=== PATIENT | female | born 1980 | race Caucasian/White ===

== ENCOUNTER 2019-01-29 20:51 | Emergency (ER) | payer MEDICAID ==
[~2019-01-29] VITALS: Ht 160 cm; Wt 54.4 kg
[~2019-01-29 20:51] MED LIST: BLOO-200 XX; INSLANTI SC; INSU100I4 SC
[2019-01-29 22:11] VITALS: BP 141/78
[2019-01-29] MEDS ORDERED: BACLOFEN 10 MG TAB PO ONE (23:00)
[2019-01-29] MEDS ORDERED: HYDROcodone-ACET 10/325MG TAB PO ONE (23:00)
== END 2019-01-29 23:31 | disposition home or self-care (01) ==
LOC: ER 20:54
DX: R07.81 Pleurodynia (principal); M62.838 Other muscle spasm; E11.9 Type 2 diabetes mellitus without complications; F17.210 Nicotine dependence, cigarettes, uncomplicated; V49.59XA Passenger injured in collision with other motor vehicles in traffic accident, initial encounter; Y93.89 Activity, other specified; Y99.8 Other external cause status; Y92.410 Unspecified street and highway as the place of occurrence of the external cause
CPT/HCPCS: 71111

== ENCOUNTER 2021-09-02 07:27 | Inpatient (IN) | payer MEDICAID ==
[~2021-09-02] VITALS: Ht 160 cm; Wt 127.0 kg
[2021-09-02] MEDS ORDERED: SODIUM BICARBONATE 8.4 % INJ 50ML VIAL IV ONE ×2 (08:15→17:15)
[2021-09-02 08:42] LABS: Hematocrit 47.2 % (36.0-46.0); Hemoglobin 13.8 g/dL (12.2-16.2); Mean Corpuscular Hemoglobin 31.6 pg (28.0-32.0); Mean Corpuscular Hgb Conc. 29.1 g/dL (32.0-36.0); Mean Corpuscular Volume 108.5 fL (80.0-100.0); Red Blood Cells 4.35 10^6/uL (4.0-5.20); Red Cell Distribution Width 14.3 % (11.8-14.3); White Blood Cell 24.9 10^3/uL (4.4-10.8)
[2021-09-02] MEDS ORDERED: SODIUM CHLORIDE 0.9% 1,000 ML IVB ONE (08:45)
[2021-09-02 08:46] LABS: Basophils % (manual) 0 (0.0-2.0); Blast Cells 0; Eosinophils % (manual) 0 (0-7); Metamyelocytes % 0; Myelocytes % 0; Promyelocytes % 0; Reactive Lymphocytes 0
[2021-09-02 08:56] LABS: Albumin 3.3 g/dL (3.4-5.0)
[2021-09-02 09:05] LABS: BUN/Creatinine Ratio 22.4; Bilirubin, Total 0.3 mg/dL (0.2-1.0); Total Protein 7.3 g/dL (6.4-8.2)
[2021-09-02 09:07] LABS: Band Neutrophils % (manual) 12; Lymphocytes % (manual) 11 (10.0-50.0); Monocytes % (manual) 4 (0-12)
[2021-09-02 09:28] LABS: Potassium 6.7 mmol/L (3.5-5.1)
[2021-09-02 09:29] LABS: Magnesium 2.9 mg/dL (1.6-2.6)
[2021-09-02] MEDS ORDERED: CALCIUM GLUC 1,000mg/50ml-NS 50 ML IV ONE (09:30)
[2021-09-02] MEDS ORDERED: InsuLIN REG 1unit/0.01ml Soln (100units/ml) IV ONE (09:30)
[2021-09-02] MEDS: InsuLIN R (HUMAN) 100 UNITS in SODIUM CHL 0.9% 99 ML IV SCH ×2 (09:30→15:17)
[2021-09-02] MEDS ORDERED: DEXTROSE (50%) 50ML SYRG IV PRN ×3 (09:30→23:45)
[2021-09-02] MEDS ORDERED: INSULIN LANTUS (GLARGINE) 1 /0.01ml (100units/ml) SC ONE ×2 (09:30→23:45)
[2021-09-02 09:42] LABS: Beta HCG, Quantitative < 1 mlU/mL (1-3); Thyroid Stimulating Hormone 0.88 uIU/mL (0.358-3.74)
[2021-09-02 10:25] LABS: Urine Bacteria NONE SEEN /hpf (None Seen); Urine Blood TRACE /uL (Negative); Urine Hyaline Cast FEW /lpf (0 - 2); Urine Specific Gravity 1.018 (1.001-1.035); Urine WBC 2 /hpf (0 - 5)
[2021-09-02 10:26] LABS: Alcohol, Urine < 3.0 mg/dL (0-10); Amphetamine Screen, Urine NEGATIVE (NEGATIVE); Barbiturate Scree,Urine NEGATIVE (NEGATIVE); Benzodiazephine Screen, Urine NEGATIVE (NEGATIVE); Cannabinoid Screen, Urine NEGATIVE (NEGATIVE); Cocaine Screen, Urine NEGATIVE (NEGATIVE); Opiate Scree,Urine NEGATIVE (NEGATIVE); Phencyclidine Screen, Urine NEGATIVE (NEGATIVE)
[2021-09-02] MEDS: ACCU-CHEK COMFORT CURVE STRIP VI SCH ×7 (10:30→19:38)
[2021-09-02] MEDS ORDERED: ONDANSETRON HCL 4 MG/2 ML VIAL ONE (11:28)
[2021-09-02] MEDS ORDERED: ONDANSETRON HCL 4 MG/2 ML VIAL IV ONE (11:30)
[2021-09-02] MEDS ORDERED: NITROGLYCERIN 0.4 MG SL TAB SL PRN (16:00)
[2021-09-02] MEDS ORDERED: MORPHINE SULFATE INJECTION 2 MG/ML SYRG IV PRN (16:00)
[2021-09-02] MEDS ORDERED: DOCUSATE SOD 100 MG CAP PO PRN (16:00)
[2021-09-02] MEDS ORDERED: HYDROcodone-ACET 5/325MG TAB PO PRN (16:00)
[2021-09-02] MEDS: SODIUM CHLORIDE 0.9% 1,000 ML IV SCH ×2 (16:00→22:24)
[2021-09-02] MEDS ORDERED: METOCLOPRAMIDE HCL 5MG/ml INJ 2ml VIAL IV PRN (16:00)
[2021-09-02 18:29] LABS: BUN/Creatinine Ratio 7.6; Potassium 3.4 mmol/L (3.5-5.1)
[2021-09-02 18:34] LABS: Cholesterol 68 mg/dL (< 200); HDL Cholesterol 31 mg/dL (40-59); LDL Cholesterol 29 mg/dL (< 100); Triglycerides 59 mg/dL (< 150)
[2021-09-02] MEDS: FAMOTIDINE (10MG/ML) 2ML VL IV SCH (22:15)
[2021-09-02] MEDS: SODIUM CHLOR 0.9% PF (SALINE LOCK) 10ML VIAL/SYR IV SCH (22:15)
[2021-09-02 22:26] LABS: BUN/Creatinine Ratio 31.5; Calcium 7.8 mg/dL (8.5-10.1); Potassium 4.2 mmol/L (3.5-5.1)
[2021-09-02] MEDS ORDERED: InsuLIN R (HUMAN) 100 UNITS in SODIUM CHL 0.9% 99 ML IV SCH (23:45)
[2021-09-03] MEDS ORDERED: InsuLIN REG 1unit/0.01ml Soln (100units/ml) SC SCH
[2021-09-03] MEDS ORDERED: ACCU-CHEK COMFORT CURVE STRIP VI SCH
[2021-09-03 00:10] LABS: Albumin 2.9 g/dL (3.4-5.0); BUN/Creatinine Ratio 31.6; Calcium 7.7 mg/dL (8.5-10.1); Potassium 4.5 mmol/L (3.5-5.1)
[2021-09-03 00:12] LABS: Bilirubin, Total 0.3 mg/dL (0.2-1.0); Total Protein 6.1 g/dL (6.4-8.2)
[2021-09-03] MEDS: ACCU-CHEK COMFORT CURVE STRIP VI SCH ×11 (00:44→20:11)
[2021-09-03] MEDS ORDERED: POTASSIUM CHL 20 Meq TABLET PO ONE (01:00)
[2021-09-03 04:15] LABS: Albumin 2.9 g/dL (3.4-5.0); BUN/Creatinine Ratio 25.6; Calcium 7.7 mg/dL (8.5-10.1); Potassium 4.3 mmol/L (3.5-5.1)
[2021-09-03 04:18] LABS: Bilirubin, Total 0.3 mg/dL (0.2-1.0); Total Protein 6.1 g/dL (6.4-8.2)
[2021-09-03] MEDS: SODIUM CHLORIDE 0.9% 1,000 ML IV SCH ×2 (05:20→13:09)
[2021-09-03] MEDS: D5W/SOD CHLO 0.9% 1,000 ML IV SCH ×2 (05:46→16:11)
[2021-09-03] MEDS: SODIUM CHLOR 0.9% PF (SALINE LOCK) 10ML VIAL/SYR IV SCH ×3 (05:46→21:35)
[2021-09-03 07:21] LABS: Basophils # (auto) 0.1 10 ^3/uL (0-0.2); Basophils % (auto) 0.4 % (0.0-2.0); Eosinophils # (auto) 0 10 ^3/uL (0-0.8); Eosinophils % (auto) 0.1 % (0.0-7.0); Hematocrit 35.7 % (36.0-46.0); Hemoglobin 12.1 g/dL (12.2-16.2); Lymphocytes # (auto) 0.9 10 ^3/uL (0.4-5.4); Lymphocytes % (auto) 5.2 % (10.0-50.0); Mean Corpuscular Hemoglobin 31.2 pg (28.0-32.0); Mean Corpuscular Hgb Conc. 33.8 g/dL (32.0-36.0); Mean Corpuscular Volume 92.3 fL (80.0-100.0); Monocytes # (auto) 1.3 10 ^3/uL (0-1.3); Monocytes % (auto) 7.4 % (0.0-12.0); Neutrophils # (auto) 15.1 10 ^3/uL (1.6-8.6); Neutrophils % (auto) 86.9 % (37.0-80.0); Red Blood Cells 3.87 10^6/uL (4.0-5.20); Red Cell Distribution Width 12.9 % (11.8-14.3); White Blood Cell 17.3 10^3/uL (4.4-10.8)
[2021-09-03 07:39] LABS: Albumin 2.6 g/dL (3.4-5.0); Calcium 7.4 mg/dL (8.5-10.1); Potassium 4.1 mmol/L (3.5-5.1)
[2021-09-03 07:43] LABS: BUN/Creatinine Ratio 28.4; Bilirubin, Total 0.3 mg/dL (0.2-1.0); Total Protein 5.6 g/dL (6.4-8.2)
[2021-09-03] MEDS: FAMOTIDINE (10MG/ML) 2ML VL IV SCH (09:47)
[2021-09-03] MEDS ORDERED: ENOXAPARIN SOD 40 MG/0.4 ML SYRINGE SC SCH (10:00)
[2021-09-03] MEDS ORDERED: INSULIN LANTUS (GLARGINE) 1 /0.01ml (100units/ml) SC SCH ×3 (10:00)
[2021-09-03 11:28] LABS: Calcium 7.7 mg/dL (8.5-10.1); Potassium 3.6 mmol/L (3.5-5.1)
[2021-09-03 11:32] LABS: BUN/Creatinine Ratio 21.1; Bilirubin, Total 0.2 mg/dL (0.2-1.0); Total Protein 6.1 g/dL (6.4-8.2)
[2021-09-03] MEDS ORDERED: DEXTROSE (50%) 50ML SYRG IV PRN (12:30)
[2021-09-03] MEDS: InsuLIN REG 1unit/0.01ml Soln (100units/ml) SC SCH ×3 (13:00→20:00)
[2021-09-03] MEDS ORDERED: THROAT LOZENGES(CEPASTAT) MT ONE (13:45)
[2021-09-03] MEDS: THROAT LOZENGES(CEPASTAT) MT PRN ×2 (16:12→18:45)
[2021-09-03 16:36] LABS: Albumin 2.6 g/dL (3.4-5.0); Calcium 7.7 mg/dL (8.5-10.1); Potassium 3.4 mmol/L (3.5-5.1)
[2021-09-03 16:39] LABS: BUN/Creatinine Ratio 23.7; Bilirubin, Total 0.3 mg/dL (0.2-1.0); Total Protein 5.5 g/dL (6.4-8.2)
[2021-09-03] MEDS ORDERED: INSU1INJ19 SC (18:25)
[2021-09-03] MEDS ORDERED: GABA400C11 PO (18:25)
[2021-09-03] MEDS: ACETAMINOPHEN 325 MG TAB PO PRN (18:44)
[2021-09-03 19:25] VITALS: BP 106/59
[2021-09-03] MEDS: METOCLOPRAMIDE HCL 5MG/ml INJ 2ml VIAL IV PRN (19:35)
[2021-09-03] MEDS: INSULIN LANTUS (GLARGINE) 1 /0.01ml (100units/ml) SC SCH (21:34)
[2021-09-03] MEDS: ENOXAPARIN SOD 40 MG/0.4 ML SYRINGE SC SCH (21:36)
[2021-09-03 22:50] LABS: Albumin 2.4 g/dL (3.4-5.0); Calcium 7.5 mg/dL (8.5-10.1); Potassium 3.4 mmol/L (3.5-5.1)
[2021-09-03 22:53] LABS: Bilirubin, Total 0.3 mg/dL (0.2-1.0); Total Protein 5.2 g/dL (6.4-8.2)
[2021-09-04] MEDS: ACETAMINOPHEN 325 MG TAB PO PRN ×3 (00:11→17:49)
[2021-09-04] MEDS: THROAT LOZENGES(CEPASTAT) MT PRN ×7 (00:11→22:24)
[2021-09-04] MEDS: ACCU-CHEK COMFORT CURVE STRIP VI SCH ×6 (00:11→22:24)
[2021-09-04] MEDS: InsuLIN REG 1unit/0.01ml Soln (100units/ml) SC SCH ×6 (00:12→22:22)
[2021-09-04] MEDS: D5W/SOD CHLO 0.9% 1,000 ML IV SCH ×4 (04:30→15:50)
[2021-09-04] MEDS: METOCLOPRAMIDE HCL 5MG/ml INJ 2ml VIAL IV PRN ×2 (04:57→20:08)
[2021-09-04 04:58] LABS: Basophils # (auto) 0 10 ^3/uL (0-0.2); Basophils % (auto) 0.4 % (0.0-2.0); Eosinophils # (auto) 0 10 ^3/uL (0-0.8); Eosinophils % (auto) 0.3 % (0.0-7.0); Hemoglobin 11.8 g/dL (12.2-16.2); Lymphocytes # (auto) 1.9 10 ^3/uL (0.4-5.4); Lymphocytes % (auto) 19.6 % (10.0-50.0); Mean Corpuscular Hemoglobin 31.3 pg (28.0-32.0); Mean Corpuscular Hgb Conc. 34.7 g/dL (32.0-36.0); Mean Corpuscular Volume 90.2 fL (80.0-100.0); Monocytes # (auto) 0.6 10 ^3/uL (0-1.3); Neutrophils # (auto) 7.3 10 ^3/uL (1.6-8.6); Neutrophils % (auto) 73.7 % (37.0-80.0); Red Blood Cells 3.77 10^6/uL (4.0-5.20); Red Cell Distribution Width 12.8 % (11.8-14.3); White Blood Cell 9.9 10^3/uL (4.4-10.8)
[2021-09-04 05:00] VITALS: BP 113/72
[2021-09-04] MEDS: SODIUM CHLOR 0.9% PF (SALINE LOCK) 10ML VIAL/SYR IV SCH ×3 (05:01→22:21)
[2021-09-04 05:15] LABS: Albumin 2.4 g/dL (3.4-5.0); BUN/Creatinine Ratio 16.3; Calcium 7.6 mg/dL (8.5-10.1); Magnesium 2.3 mg/dL (1.6-2.6)
[2021-09-04 05:25] LABS: Bilirubin, Total 0.4 mg/dL (0.2-1.0); Total Protein 5.1 g/dL (6.4-8.2)
[2021-09-04 05:48] LABS: Potassium 2.8 mmol/L (3.5-5.1)
[2021-09-04] MEDS ORDERED: POTASSIUM CHL 20MEQ/50ML 50 ML IV SCH (06:15)
[2021-09-04] MEDS ORDERED: POTASSIUM CHLORIDE 40 MEQ, LIDOCAINE 1% (LOCAL ANESTH.) 4 ML in SODIUM CHL 0.9% 250 ML IV ONE ×2 (06:30→11:00)
[2021-09-04 09:00] VITALS: BP 125/65
[2021-09-04] MEDS: FAMOTIDINE (10MG/ML) 2ML VL IV SCH (09:24)
[2021-09-04] MEDS: ENOXAPARIN SOD 40 MG/0.4 ML SYRINGE SC SCH (09:25)
[2021-09-04] MEDS: INSULIN LANTUS (GLARGINE) 1 /0.01ml (100units/ml) SC SCH ×2 (10:00→22:23)
[2021-09-04 13:00] VITALS: BP 125/82
[2021-09-04] MEDS ORDERED: LIDOCAINE VISCOUS 2% 15ML UD MT PRN (14:45)
[2021-09-04] MEDS ORDERED: DEXTROSE (50%) 50ML SYRG IV PRN (14:45)
[2021-09-04 15:43] LABS: Calcium 7.5 mg/dL (8.5-10.1); Potassium 3.1 mmol/L (3.5-5.1)
[2021-09-04 15:47] LABS: Albumin 2.4 g/dL (3.4-5.0); BUN/Creatinine Ratio 9.3
[2021-09-04 15:49] LABS: Bilirubin, Total 0.5 mg/dL (0.2-1.0); Total Protein 5.3 g/dL (6.4-8.2)
[2021-09-04] MEDS ORDERED: MAGNESIUM SULFATE 1GM/100ML 100 ML IV ONE (21:00)
[2021-09-04 22:00] VITALS: BP 142/78
[2021-09-04] MEDS: GABAPENTIN 300 MG CAP PO SCH (22:21)
[2021-09-05] MEDS: THROAT LOZENGES(CEPASTAT) MT PRN ×2 (02:33→14:26)
[2021-09-05] MEDS: ACETAMINOPHEN 325 MG TAB PO PRN ×4 (02:34→20:45)
[2021-09-05] MEDS: D5W/SOD CHLO 0.9% 1,000 ML IV SCH (04:05)
[2021-09-05 05:00] VITALS: BP 136/79
[2021-09-05 06:25] LABS: Albumin 2.6 g/dL (3.4-5.0); Calcium 7.5 mg/dL (8.5-10.1)
[2021-09-05 06:29] LABS: BUN/Creatinine Ratio 12.5; Bilirubin, Total 0.6 mg/dL (0.2-1.0); Total Protein 5.6 g/dL (6.4-8.2)
[2021-09-05 06:33] LABS: Potassium 2.9 mmol/L (3.5-5.1)
[2021-09-05] MEDS: SODIUM CHLOR 0.9% PF (SALINE LOCK) 10ML VIAL/SYR IV SCH ×2 (06:39→14:00)
[2021-09-05] MEDS: GABAPENTIN 300 MG CAP PO SCH ×3 (06:39→20:33)
[2021-09-05] MEDS: ACCU-CHEK COMFORT CURVE STRIP VI SCH ×4 (06:40→20:47)
[2021-09-05] MEDS: InsuLIN REG 1unit/0.01ml Soln (100units/ml) SC SCH ×4 (06:41→20:47)
[2021-09-05] MEDS ORDERED: POTASSIUM CHLORIDE 40 MEQ, LIDOCAINE 1% (LOCAL ANESTH.) 4 ML in SODIUM CHL 0.9% 250 ML IV ONE ×3 (07:00→15:00)
[2021-09-05 08:42] VITALS: BP 121/75
[2021-09-05] MEDS: FAMOTIDINE (10MG/ML) 2ML VL IV SCH (08:53)
[2021-09-05] MEDS: INSULIN LANTUS (GLARGINE) 1 /0.01ml (100units/ml) SC SCH ×2 (10:13→20:47)
[2021-09-05 13:00] VITALS: BP 124/86
[2021-09-05] MEDS ORDERED: INSREGI SC (16:07)
[2021-09-05] MEDS ORDERED: INSLANTI SC (16:07)
[2021-09-05] MEDS ORDERED: POTASSIUM CHL 20 Meq TABLET PO ONE (16:15)
[2021-09-05] MEDS ORDERED: MAGNESIUM OXIDE 400 MG TAB PO ONE (16:15)
[2021-09-05 18:08] VITALS: BP 121/88
[2021-09-05 19:14] LABS: Albumin 2.8 g/dL (3.4-5.0); BUN/Creatinine Ratio 11.3; Calcium 8.1 mg/dL (8.5-10.1); Potassium 4.1 mmol/L (3.5-5.1)
[2021-09-05 19:17] LABS: Bilirubin, Total 0.6 mg/dL (0.2-1.0); Total Protein 6.2 g/dL (6.4-8.2)
[2021-09-05] MEDS: METOCLOPRAMIDE HCL 5MG/ml INJ 2ml VIAL IV PRN (20:34)
== END 2021-09-05 20:50 | disposition home or self-care (01) | DRG 420 ==
LOC: EDBD 07:27 → ER 07:27 → TELE 15:58 → TELE-WESTW 09-03 18:00
PROVIDERS: ADMIT Hospitalist; ATTEND Hospitalist
DX: E11.10 Type 2 diabetes mellitus with ketoacidosis without coma (principal); G92.8 Other toxic encephalopathy; E44.1 Mild protein-calorie malnutrition; N17.9 Acute kidney failure, unspecified; E86.0 Dehydration; D75.89 Other specified diseases of blood and blood-forming organs; E87.5 Hyperkalemia; E11.21 Type 2 diabetes mellitus with diabetic nephropathy; Z20.822 Contact with and (suspected) exposure to COVID-19; F17.210 Nicotine dependence, cigarettes, uncomplicated; Z68.42 Body mass index [BMI] 45.0-49.9, adult; Z82.49 Family history of ischemic heart disease and other diseases of the circulatory system; Z83.3 Family history of diabetes mellitus; Z79.4 Long term (current) use of insulin
CPT/HCPCS: 36415; 36600; 71045; 80048; 80053; 80061; 80307; 81001; 82805; 82962; 83036; 83690; 83735; 84443; 84484; 84702; 85007; 85025; 85027; 87426; 93005; 96365; 96372; 96375; 99291; G0378; J1815; J2001; J2405; J3490; J7042

== ENCOUNTER 2025-03-04 17:29 | Inpatient (IN) | payer MEDICAID ==
[~2025-03-04] VITALS: Ht 160 cm; Wt 60.8 kg
[~2025-03-04 17:29] MED LIST changes: +ALBUAER3 IN; +AUG875T PO; +GABA-1251 PO; +GUAI100S6 PO; +INSREGI SC; -INSU100I4 SC
--- NOTE | 2025-03-04 17:39 | ED.PDOC ---
History of present illness HPI Comments This is a 44 year old female RIAA presenting to the ED with chief complaint of generalized weakness and hyperglycemia. Patient reports that she has been experiencing generalized weakness with associated malaise and excessive thirst since yesterday. Patient relays that she ran out of her long acting insulin y esterday. EMS states patient had been heavily drinking Truly's today with her BG reading 456 on route to the ED. EMS notes patient was given 500ccs of IV NS. Patient denies any SOB, dizziness, N/V, chest pain, abdominal pain, fever, or chills. Patient's BG noted to be 444 in the ED. Chief Complaint: Hyperglycemia Time Seen by MD: 17:35 Primary Care Provider: UTO History of present illness: Nurses Notes, Babbitter Notes, Medications, Allergies Allergies: Coded Allergies: NO KNOWN ALLERGIES (Unverified , 09/04/14) Home Meds Active Scripts Albuterol Sulfate (VENTOLIN MDI) 90 Mcg Ih, 90 MCG IN Q4HP PRN for 30 Days, #1 INH Prov:RAMIRO DAWSON NP 03/24/23 Amoxicillin & Pot Clavulanate (AUGMENTIN TABLET) 875 Mg Tb, 7 MG PO BID for 7 Days, #14 TAB Prov:RAMIRO DAWSON NP 03/24/23 Insulin Regular (Human) (Novolin R) 100 Unit/Ml Inj, 0 SC AC for 60 Days, #30 INJ 1 Refill Resume patients previous dose Prov:RAMIRO DAWSON NP 03/24/23 Insulin Glargine (Lantus) 100 Unit/Ml Inj, 12 UNITS SC BID for 60 Days, #30 DOSE Prov:RAMIRO DAWSON NP 03/24/23 Blood Glucose Monitoring Suppl (Blood Glucose Monitoring W/Device) 1 Kit Kit, KIT XX, #1 Prov:FABIANA MASON MD 12/24/18 Reported Medications Guaifenesin-Codeine (Robitussin/Codeine) 10 Ml So, 5 ML PO Q6HR for 7 Days, #120 ML 03/24/23 Guaifenesin-Codeine (Robitussin/Codeine) 10 Ml So, 5 ML PO Q6HR for 7 Days, #120 ML 03/24/23 Gabapentin (Gabapentin) 400 Mg Cap, 1 CAP PO TID 09/03/21 Information Source: Patient, Emergency Med Personnel Mode of Arrival: EMS Timing: Days Duration: Since onset Prehospital treatment: IVF [place]: None History of: Diabetes, Insulin use Past Medical History PAST MEDICAL HISTORY: DM Surgical History: Denies all surgeries LABOR RELATIONS ANALYST History: No Pertinent LABOR RELATIONS ANALYST History Family History Family History: Reviewed,noncontributory to illness, Family hx of DM Social History Smoker: Cigarettes, Less Than 1 Pack/Day Alcohol: Occasionally Drugs: Denies Drug Use Lives In: Home Constitutional: reports: malaise, weakness; denies: chills, diaphoresis, fatigue, fever, sweats, others EENTM: denies: blurred vision, double vision, ear bleeding, ear discharge, ear drainage, ear pain, ear ringing, eye pain, eye redness, hearing loss, mouth pain, mouth swelling, nasal discharge, nose bleeding, nose congestion, nose pain, photophobia, tearing, throat pain, throat swelling, voice changes, others Respiratory: denies: cough, hemoptysis, orthopnea, SOB at rest, shortness of breath, SOB with excertion, stridor, wheezing, others Cardiovascular: denies: chest pain, dizzy spells, diaphoresis, Dyspnea on exertion, edema, irregular heart beat, left arm pain, lightheadedness, palpitations, PND, syncope, others Gastrointestinal: denies: abdomen distended, abdominal pain, blood streaked bowels, constipated, diarrhea, dysphagia, difficulty swallowing, hematemesis, melena, nausea, poor appetite, poor fluid intake, rectal bleeding, rectal pain, vomiting, others Genitourinary: denies: abnormal vagina bleeding, burning, dyspareunia, dysuria, flank pain, frequency, hematuria, incontinence, pain, , vagina discharge, urgency, others Neurological: denies: dizziness, fainting, headache, left sided numbness, left sided weakness, numbness, paresthesia, pre-existing deficit, right sided numbness, right sided weakness, seizure, speech problems, tingling, tremors, weakness, others Musculoskeletal: denies: back pain, gout, joint pain, joint swelling, muscle pain, muscle stiffness, neck pain, others Integumetry: denies: bruises, change in color, change in hair/nails, dryness, laceration, lesions, lumps, rash, wounds, others Allergic/Immunocompromised: denies: Difficulty Healing, Frequent Infections, Hives, Itching, others Hematologic/Lymphatic: denies: anemia, blood clots, easy bleeding, easy bruising, swollen glands, others Endocrine: reports: excessive thirst; denies: excessive hunger, excessive sweating, excessive urination, flushing, intolerance to cold, intolerance to heat, unexplained weight gain, unexplained weight loss, others Psychiatric: denies: anxiety, bipolar disorder, depression, hopeless, panic disorder, schizophrenia, sleepless, suicidal, others All Other Systems: Reviewed and Negative Physical Exam General Appearance: Moderate Distress HEENT: Normal ENT Inspection, Pharynx Normal, TMs Normal Neck: Full Range of Motion, Non-Tender, Normal, Normal Inspection Respiratory: Chest Non-Tender, Lungs Clear, No Accessory Muscle Use, No Respiratory Distress, Normal Breath Sounds Cardiovascular: No Edema, No JVD, No Murmur, No Gallop, Tachycardia Breast Exam: Deferred Gastrointestinal: No Organomegaly, Non Tender, No Pulsatile Mass, Normal Bowel Sounds, Soft Genitalia: Deferred Pelvic: Deferred Rectal: Deferred Extremities: No calf tenderness, Normal capillary refill, Normal inspection, Normal range of motion, Non-tender, No pedal edema Musculoskeletal : Apperance: Normal Neurologic: Alert, inclusion specialist II-XII nml as Tested, Motor Weakness, Normal Affect, Normal Mood, No Sensory Deficits Cerebellar Function: Normal Reflexes: Normal Skin: Dry, Normal Color, Warm Lymphatic: No Adenopathy Was a procedure done? Was a procedure done?: No Differential Diagnosis (DM) Differential Diagnosis: Dehydration, DKA, Gastritis, Gastroenteritis, UTI X-Ray, Labs, Meds, VS Vital Signs Date Time Temp Pulse Resp B/P (MAP) Pulse Ox O2 Delivery O2 Flow Rate FiO2 03/04/25 18:15 Room Air* 0 21 03/04/25 18:10 91 03/04/25 17:35 99.0 94 20 15 (50) 99 99.0 Lab Test 03/04/25 18:17 03/04/25 17:50 03/04/25 17:44 Range/Units White Blood Count 25.4 H 4.4-10.8 10^3/uL Red Blood Count 5.12 4.0-5.20 10^6/uL Hemoglobin 16.0 12.2-16.2 g/dL Hematocrit 51.5 H 36.0-46.0 % Mean Corpuscular Volume 100.6 H 80.0-100.0 fL Mean Corpuscular Hemoglobin 31.2 28.0-32.0 pg Mean Corpuscular Hemoglobin Concent 31.1 L 32.0-36.0 g/dL Red Cell Distribution Width 14.3 11.8-14.3 % Platelet Count 405 140-450 10^3/uL Mean Platelet Volume 8.8 6.9-10.8 fL Neutrophils (%) (Auto) 37.0-80.0 % Lymphocytes (%) (Auto) 10.0-50.0 % Monocytes (%) (Auto) 0.0-12.0 % Basophils (%) (Auto) 0.0-2.0 % Neutrophils # (Auto) 1.6-8.6 10 ^3/uL Lymphocytes # (Auto) 0.4-5.4 10 ^3/uL Monocytes # (Auto) 0-1.3 10 ^3/uL Differential Total Cells Counted 100.0 100 Neutrophils % (Manual) 91 H 37.0-80.0 Band Neutrophils % (Manual) 2 Lymphocytes % (Manual) 4 L 10.0-50.0 Monocytes % (Manual) 3 0-12 Eosinophils % (Manual) 0 0-7 Basophils % (Manual) 0 0.0-2.0 Metamyelocytes % (manual) 0 Myelocytes % (Manual) 0 Promyelocytes % (Manual) 0 Blast Cells % (Manual) 0 Reactive Lymphocytes 0 Platelet Estimate Adequate Anisocytosis (manual) Slight Sodium Level 131 L 136-145 mmol/L Potassium Level 6.2 *H 3.5-5.1 mmol/L Chloride Level 101 98-107 mmol/L Carbon Dioxide Level < 10 *L 20-31 mmol/L Anion Gap 20.16329 H 5-15 Blood Urea Nitrogen 24 H 9-23 mg/dL Creatinine 1.32 H 0.550-1.02 mg/dL Glomerular Filtration Rate Calc 52 >90 mL/min BUN/Creatinine Ratio 18.2 10.0-20.0 Serum Glucose 475 *H 74-106 mg/dL Calcium Level 10.0 8.7-10.4 mg/dL Plasma/Serum Blood Alcohol < 3.0 <10 mg/dL POC Glucose 484 *H 70-106 mg/dl Urine Color Light-yellow Yellow Urine Clarity Clear Clear Urine pH 5.0 5.0-9.0 Urine Specific [place] 1.020 1.001-1.035 Urine Protein Trace H Negative Urine Ketones 4+ H Negative Urine Blood 2+ H Negative /uL Urine Nitrite Negative Negative Urine Bilirubin Negative Negative Urine Urobilinogen Normal Negative mg/dL Urine Leukocyte Esterase 2+ Negative /uL Urine RBC 17 0 - 4 /hpf Urine Microscopic WBC 12 H 0-5 /HPF Urine Squamous Epithelial Cells Few <5 /hpf Urine Bacteria None seen None Seen /hpf Urine Glucose 4+ H Normal mg/dL Urine Test Negative Negative Urine Opiates Screen Neg NEGATIVE Urine Fentanyl Screen Neg NEGATIVE Urine Barbiturates Screen Neg NEGATIVE Urine Phencyclidine Screen Neg NEGATIVE Urine Amphetamines Screen Pos NEGATIVE Urine Benzodiazepines Screen Neg NEGATIVE Urine Cocaine Screen Neg NEGATIVE Urine Cannabinoids Screen Neg NEGATIVE Current Medications Medications (Trade) Dose Ordered Sig/Laura Route Start Time Stop Time Status Last Admin Sodium Chloride 1,000 ml @ 1,000 mls/hr Q1H ONCE IV 03/04/25 17:45 03/04/25 18:44 DC 03/04/25 17:45 Ondansetron HCl (Zofran) 4 mg ONCE ONCE IV 03/04/25 17:45 03/04/25 17:46 DC 03/04/25 19:16 Insulin Human Regular (InsuLIN R) 5 units ONCE ONCE IV 03/04/25 18:45 03/04/25 18:46 DC 03/04/25 19:03 Chest XR indicates: No acute cardiopulmonary process. The patient was given a 1 L bolus of normal saline The patient was given insulin 5 units IV push The patient was given Zofran 4 mg IV push for the nausea The urine tox is positive for methamphetamines The urine test is positive for UTI The patient was given Rocephin 1 g IV piggyback for the UTI CBC shows an elevated white blood cell count of 25.4 The chemistry panel shows a BUN of 24 and a creatinine of one 0.32 The CO2 is less than 10 The anion gap is greater than 20 At this time, the patient is being admitted Images Reviewed?: Images reviewed and evaluated by me Time of 1ST Reevaluation: 19:33 Reevaluation 1ST: Unchanged Patient Education/Counseling: Diagnosis, Treatment, Prognosis Family Education/Counseling: No Family Present SEPSIS Sepsis Screen Physician Orders Chest Portable (03/04/25 17:33) Heplock Iv (03/04/25 17:33) Engineering Associate (03/04/25 17:33) Blood Pressure (03/04/25 17:33) Pulse Oximetry (03/04/25 17:33) Potassium (03/04/25 19:28) Abg W/ Co-Ox (03/04/25 19:31) Insulin Algorithm # 1 (03/04/25 19:45) Glucose Blood (Accu-Chek Comfort Curve T (03/04/25 21:00) D/C All Diabetic Medications (03/04/25 19:31) Insulin Drip Protocol (03/04/25 19:31) Dextrose 50% Syringe (03/04/25 19:45) Long Acting Insulin Lantus (03/04/25 19:45) Long Acting Insulin Lantus (03/05/25 10:00) Vital Signs Date Time Temp Pulse Resp B/P (MAP) Pulse Ox O2 Delivery O2 Flow Rate FiO2 03/04/25 18:15 Room Air* 0 21 03/04/25 18:10 91 03/04/25 17:35 99.0 94 20 15/67 (50) 99 99.0 Laboratory Tests Test 03/04/25 18:17 White Blood Count 25.4 10^3/uL (4.4-10.8) H Medications Medications Dose Ordered Sig/Laura Route Start Time Stop Time Status Last Admin Dose Admin Insulin Human Regular 5 units ONCE ONCE IV 03/04/25 18:45 03/04/25 18:46 DC 03/04/25 19:03 Ondansetron HCl 4 mg ONCE ONCE IV 03/04/25 17:45 03/04/25 17:46 DC 03/04/25 19:16 Sodium Chloride 1,000 ml @ 1,000 mls/hr Q1H ONCE IV 03/04/25 17:45 03/04/25 18:44 DC 03/04/25 17:45 Departure 1 Departure Time of Disposition: 19:33 Impression: Primary Impression: Diabetic ketoacidosis Qualified Codes: E10.10 - Type 1 diabetes mellitus with ketoacidosis without coma Additional Impression: Hyperkalemia Disposition: ADMITTED INPATIENT Admit to: ICU Condition: Fair Critical Care Note Critical Care Time?: Yes (45 min-critical care time only) Stability Stability form required: Yes Unstable for transfer: Telemetry monitoring (Telemetry monitoring required), ED Physician Assesment (Clinical assesment) Heart Score Heart Score: Heart Score Response (Comments) Value History N/A 0 EKG N/A 0 Age N/A 0 Risk Factors N/A 0 Troponin N/A 0 Total 0 I personally scribed for DIANE JONAS MD ([email or web address]) on 03/04/25 at 17:39. Electronically submitted by Sb Crespo ([email or web address]). I personally scribed for DIANE JONAS MD ([email or web address]) on 03/04/25 at 17:40. Electronically submitted by Sb Crespo ([email or web address]). I personally scribed for DIANE JONAS MD ([email or web address]) on 03/04/25 at 18:38. Electronically submitted by Sb Crespo ([email or web address]). DIANE JONAS MD Mar 04, 2025 17:39
[2025-03-04] MEDS: SODIUM CHLORIDE 0.9% 1,000 ML IV ONE (17:45)
[2025-03-04] MEDS ORDERED: InsuLIN REG 1unit/0.01ml Soln (100units/ml) IV ONE (17:45)
--- NOTE | 2025-03-04 18:09 | DVH ---
EXAM: XR Chest, 1 View CLINICAL INDICATION: weakness TECHNIQUE: Frontal view of the chest. COMPARISON: No relevant prior studies available. FINDINGS: LUNGS AND PLEURAL SPACES: Unremarkable. No consolidation. No pneumothorax. HEART: Unremarkable. No cardiomegaly. MEDIASTINUM: Unremarkable. Normal mediastinal contour. BONES/JOINTS: Unremarkable. No acute fracture. OTHER FINDINGS: Comparison XY CHEST PORTABLE on DOS: 03/24/23, XY CHEST PORTABLE on DOS: 03/23/23, XY CHEST PORTABLE on DOS: 03/22/23, XY CHEST XRAY 1 VIEW on DOS: 03/20/23, CHEST PORTABLE on DOS: 1. IMPRESSION: No acute cardiopulmonary process. HS:Y
[2025-03-04 18:17] LABS: Urine Bacteria None Seen /hpf (None Seen)
[2025-03-04 18:29] LABS: Hematocrit 51.5 % (36.0-46.0); Mean Corpuscular Hemoglobin 31.2 pg (28.0-32.0); Mean Corpuscular Hgb Conc. 31.1 g/dL (32.0-36.0); Mean Corpuscular Volume 100.6 fL (80.0-100.0); Platelet Count (auto) 405 10^3/uL (140-450); Red Blood Cells 5.12 10^6/uL (4.0-5.20); Red Cell Distribution Width 14.3 % (11.8-14.3); White Blood Cell 25.4 10^3/uL (4.4-10.8)
[2025-03-04 18:31] LABS: Basophils % (manual) 0 (0.0-2.0); Blast Cells 0; Eosinophils % (manual) 0 (0-7); Metamyelocytes % 0; Myelocytes % 0; Promyelocytes % 0; Reactive Lymphocytes 0
[2025-03-04 18:33] LABS: Urine Blood 2+ /uL (Negative); Urine Clarity Clear (Clear); Urine Color Light-Yellow (Yellow); Urine Protein, UAD TRACE (Negative); Urine Squamous Epithelial Cell FEW /hpf (<5); Urine Urobilinogen Normal (Negative); Urine WBC 12 /HPF (0-5)
[2025-03-04 18:42] LABS: Amphetamine Screen, Urine Pos (NEGATIVE); Barbiturate Scree,Urine Neg (NEGATIVE); Benzodiazephine Screen, Urine Neg (NEGATIVE); Cannabinoid Screen, Urine Neg (NEGATIVE); Cocaine Screen, Urine Neg (NEGATIVE); Opiate Scree,Urine Neg (NEGATIVE); Phencyclidine Screen, Urine Neg (NEGATIVE)
[2025-03-04 18:45] LABS: Chloride 101 mmol/L (98-107)
[2025-03-04 18:46] LABS: Anion Gap 20.00001 (5-15)
[2025-03-04 18:51] LABS: BUN/Creatinine Ratio 18.2 (10.0-20.0)
[2025-03-04 18:58] LABS: Blood Urea Nitrogen 24 mg/dL (9-23); Sodium 131 mmol/L (136-145)
[2025-03-04 18:59] LABS: Blood Alcohol < 3.0 mg/dL (<10); Carbon Dioxide < 10 mmol/L (20-31); Glucose 475 mg/dL (74-106); Potassium 6.2 mmol/L (3.5-5.1)
[2025-03-04] MEDS: InsuLIN REG 1unit/0.01ml Soln (100units/ml) ONE (18:59)
[2025-03-04] MEDS: InsuLIN REG 1unit/0.01ml Soln (100units/ml) IV ONE (19:03)
[2025-03-04] MEDS: ONDANSETRON HCL 4 MG/2 ML VIAL IV ONE (19:16)
[2025-03-04 19:22] LABS: Band Neutrophils % (manual) 2; Lymphocytes % (manual) 4 (10.0-50.0); Monocytes % (manual) 3 (0-12); Platelet Estimate Adequate
[2025-03-04 19:23] LABS: Anisocytosis Slight
[2025-03-04 19:45] VITALS: RESP 17; O2SAT 100
[2025-03-04] MEDS ORDERED: DEXTROSE (50%) 50ML SYRG IV PRN (19:45)
[2025-03-04 19:56] LABS: Base Excess -27.6 mmol/L (-2.0-3.0)
[2025-03-04] MEDS: SODIUM BICARB 8.4% 50Meq/50ml SYR Vial IV ONE ×2 (20:00→20:01)
[2025-03-04] MEDS: levoFLOXacin 500MG 100 ML IV ONE ×2 (20:00→20:01)
[2025-03-04] MEDS: INSULIN LANTUS (GLARGINE) 1 /0.01ml (100units/ml) SC ONE ×2 (20:02→20:05)
[2025-03-04] MEDS: SODIUM BICARB 50mEq/50ml Vial 50 ML in SOD CHL 0.45% 1,000 ML IV ONE (20:25)
[2025-03-04] MEDS: ACCU-CHEK COMFORT CURVE STRIP VI SCH (21:06)
[2025-03-04] MEDS: INSULIN DRIP 100 UNIT/100ML 100 ML IV ONE (21:07)
[2025-03-04] MEDS: INSULIN DRIP 100 UNIT/100ML 100 ML IV SCH (21:10)
[2025-03-04] MEDS: SODIUM CHLORIDE 0.9% 500 ML IV ONE (21:15)
[2025-03-04] MEDS: PANTOPRAZOLE 40 MG/10 ML VIAL INJ IV ONE ×2 (22:07→22:08)
[2025-03-04 23:00] VITALS: BP 141/81; PULSE 91; RESP 12; O2SAT 100
[2025-03-04 23:33] VITALS: BP 141/81; PULSE 91; RESP 12; TEMP 98.9; O2SAT 100; O2SAT 99
[2025-03-05] VITALS (16 sets, daily range): BP systolic 110–156; BP diastolic 63–84; PULSE 88–99; RESP 11–19; TEMP 98.4–98.9; O2SAT 95–100
[2025-03-05 00:20] LABS: Sodium 136 mmol/L (136-145)
[2025-03-05 00:21] LABS: Anion Gap 18.00001 (5-15); Calcium 8.1 mg/dL (8.7-10.4); Chloride 108 mmol/L (98-107); Potassium 5.4 mmol/L (3.5-5.1)
[2025-03-05 00:23] LABS: Carbon Dioxide < 10 mmol/L (20-31)
[2025-03-05 00:26] LABS: BUN/Creatinine Ratio 20.4 (10.0-20.0); Blood Urea Nitrogen 21 mg/dL (9-23)
[2025-03-05 00:37] LABS: Glucose 253 mg/dL (74-106)
[2025-03-05] MEDS: SODIUM CHLORIDE 0.9% 250 ML IV ONE (01:00)
[2025-03-05 01:05] LABS: Base Excess -17.4 mmol/L (-2.0-3.0)
[2025-03-05] MEDS: D5W/SOD CHL 0.45% 1,000 ML IV SCH (01:05)
--- NOTE | 2025-03-05 03:08 | DVHHPRES ---
History of Present Illness Resident Creating Document: MARCUS MCGOVERN RESIDENT History of Present Illness Patient is a 44-year-old female with a past medical history of diabetes mellitus presented to the ED with a chief complaint of nausea and generalized weakness. Patient reported that since the last 2 days she has been feeling weak associated with the excessive thirst since yesterday. Patient ran out of her long-acting insulin 2- 3 days ago. Patient denied any episode of emesis, abdominal pain. Patient denied cough, expectoration, fever, chills. Patient did report of having increased thirst and increased frequency of urination. Patient's urine was positive for amphetamines Past medical history: Diabetes mellitus 1 versus type 2 Past surgical history: None Social history: Patient lives with the landlord, smoked less than 1 pack of cigarettes per day, occasional alcohol use denies any other drug use Review of Systems Review of Systems Patient seen and examined at the bedside Reports feeling weak but better than when she came in Has mild headache Denies cough, chest pain, shortness of breath, abdominal pain Allergies: Coded Allergies: NO KNOWN ALLERGIES (Unverified , 09/04/14) Medications Current Medications Medications Dose Ordered Sig/Laura Route Start Time Stop Time Status Last Admin Dose Admin Insulin Human (Reg)/Sodium Chloride 100 ml @ 0.5 mls/hr Q24H IV 03/04/25 19:45 03/04/25 21:10 4 MLS/HR Diagnostic Test (Pha) 1 strip Q90MIN 03/04/25 21:00 03/05/25 01:41 1 STRIP Dextrose 50 ml PRN PRN IV 03/04/25 19:45 Insulin Glargine 15 units DAILY SC 03/05/25 10:00 Pantoprazole Sodium 40 mg DAILY IV 03/05/25 10:00 Dextrose/Sodium Chloride 1,000 ml @ 100 mls/hr Q10H IV 03/05/25 00:45 Exam Vital Signs Vital Signs Date Time Temp Pulse Resp B/P (MAP) Pulse Ox O2 Delivery O2 Flow Rate FiO2 03/05/25 01:00 91 11 129/71 (90) 95 03/05/25 00:00 98.9 98.9 03/04/25 23:33 Room Air* 0 21 Exam Gen - no pallor, no icterus, no cyanosis, no clubbing, no LAD, no edema . Skin - Patients skin is warm and dry. HEENT - normocephalic, atraumatic, dry mucous membranes. Neck - full ROM, no LAD, no JVD Pulmonary - B/L equal breath sounds, no crackles, no wheezing, no stridor. cardiovascular - regular S1,S2 heard, no added sounds, no murmurs heard. peripheral pulses normal radial 2+, pedal 2+. capillary refill normal <2 secs. GI - soft, nontender abdomen. no hepatospleenomegaly. Bowel sounds normoactive Neurological - Patient is A/O X 3 . Bilateral upper extremity strength 5/5, bilateral lower extremity strength 5/5, no facial droop, normal speech, no tremor, no sensory deficiets. Labs/Xrays Labs Test 03/05/25 01:38 03/05/25 00:59 03/04/25 23:55 03/04/25 18:17 Range/Units POC Glucose 146 H 70-106 mg/dl Blood Gas Specimen Type Arterial Blood Gas Sample Site Left brachial Blood Gas Patient Temperature 37.0 Arterial Blood Date Drawn [id number] Arterial Blood pH 7.193 *L 7.350-7.450 Arterial Blood Partial Pressure CO2 23.4 L 32.0-45.0 mmHg Arterial Blood Partial Pressure O2 95.8 83.0-108.0 mmHg Arterial Blood HCO3 8.8 L 21.0-28.0 mmol/L Arterial Blood Oxygen Saturation 97.3 94.0-98.0 % Arterial Blood Base Excess -17.4 L -2.0-3.0 mmol/L Arterial Blood Oxyhemoglobin 95.6 94.0-98.0 % Arterial Blood Carboxyhemoglobin 1.3 0.5-1.5 % Arterial Blood Methemoglobin 0.4 0.0-1.5 % Dwayne Test N/a Blood Gas Total Hemoglobin 14.80 12.0-16.0 g/dL Blood Gas Modality Room air FiO2 % 21.0 Blood Gas Critical Value Read Back Yes Blood Gas Notified Whom marcus Mcgovern md Blood Gas Notified Time [id number] Blood Gas Notified By Sodium Level 136 # 136-145 mmol/L Potassium Level 5.4 H 3.5-5.1 mmol/L Chloride Level 108 H 98-107 mmol/L Carbon Dioxide Level < 10 *L 20-31 mmol/L Anion Gap 18.48649 H 5-15 Blood Urea Nitrogen 21 9-23 mg/dL Creatinine 1.03 H 0.550-1.02 mg/dL Glomerular Filtration Rate Calc 70 >90 mL/min BUN/Creatinine Ratio 20.4 H 10.0-20.0 Serum Glucose 253 H 74-106 mg/dL Calcium Level 8.1 L 8.7-10.4 mg/dL White Blood Count 25.4 H 4.4-10.8 10^3/uL Red Blood Count 5.12 4.0-5.20 10^6/uL Hemoglobin 16.0 12.2-16.2 g/dL Hematocrit 51.5 H 36.0-46.0 % Mean Corpuscular Volume 100.6 H 80.0-100.0 fL Mean Corpuscular Hemoglobin 31.2 28.0-32.0 pg Mean Corpuscular Hemoglobin Concent 31.1 L 32.0-36.0 g/dL Red Cell Distribution Width 14.3 11.8-14.3 % Platelet Count 405 140-450 10^3/uL Mean Platelet Volume 8.8 6.9-10.8 fL Neutrophils (%) (Auto) 37.0-80.0 % Lymphocytes (%) (Auto) 10.0-50.0 % Monocytes (%) (Auto) 0.0-12.0 % Basophils (%) (Auto) 0.0-2.0 % Neutrophils # (Auto) 1.6-8.6 10 ^3/uL Lymphocytes # (Auto) 0.4-5.4 10 ^3/uL Monocytes # (Auto) 0-1.3 10 ^3/uL Differential Total Cells Counted 100.0 100 Neutrophils % (Manual) 91 H 37.0-80.0 Band Neutrophils % (Manual) 2 Lymphocytes % (Manual) 4 L 10.0-50.0 Monocytes % (Manual) 3 0-12 Eosinophils % (Manual) 0 0-7 Basophils % (Manual) 0 0.0-2.0 Metamyelocytes % (manual) 0 Myelocytes % (Manual) 0 Promyelocytes % (Manual) 0 Blast Cells % (Manual) 0 Reactive Lymphocytes 0 Platelet Estimate Adequate Anisocytosis (manual) Slight Plasma/Serum Blood Alcohol < 3.0 <10 mg/dL Test 03/04/25 17:44 Range/Units Urine Color Light-yellow Yellow Urine Clarity Clear Clear Urine pH 5.0 5.0-9.0 Urine Specific [place] 1.020 1.001-1.035 Urine Protein Trace H Negative Urine Ketones 4+ H Negative Urine Blood 2+ H Negative /uL Urine Nitrite Negative Negative Urine Bilirubin Negative Negative Urine Urobilinogen Normal Negative mg/dL Urine Leukocyte Esterase 2+ Negative /uL Urine RBC 17 0 - 4 /hpf Urine Microscopic WBC 12 H 0-5 /HPF Urine Squamous Epithelial Cells Few <5 /hpf Urine Bacteria None seen None Seen /hpf Urine Glucose 4+ H Normal mg/dL Urine Test Negative Negative Urine Opiates Screen Neg NEGATIVE Urine Fentanyl Screen Neg NEGATIVE Urine Barbiturates Screen Neg NEGATIVE Urine Phencyclidine Screen Neg NEGATIVE Urine Amphetamines Screen Pos NEGATIVE Urine Benzodiazepines Screen Neg NEGATIVE Urine Cocaine Screen Neg NEGATIVE Urine Cannabinoids Screen Neg NEGATIVE Assessment/Plan Assessment/Plan Anion gap Metabolic acidosis with respiratory compensation Diabetic ketoacidosis Uncontrolled T2DM - ABG showed metabolic acidosis with respiratory compensation - initial ABG pH less than 7, 50 mEq of sodium bicarb - insulin drip - IV fluids - BMP q.4 hours - keep potassium more than 4.5 UTI likely acute cystitis Sepsis likely due to above - IV fluids - IV antibiotics REX on CKD likely d/t dehydration,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 Peripheral neuropathy from uncontrolled diabetes - IV fluids - monitor kidney function and electrolytes PUD prophylaxis: Protonix DVT prophylaxis: MARYSOL score 0 Goals of care discussed with the patient and the primary RN for over 19 minutes. Full code Critical care time spent: 57 minutes Plan discussed with Dr. Van Plan discussed with: Other (RN Ambar) My Orders Orders - MARCUS MCGOVERN RESIDENT Procedure Category Date Status Time Admit ADMIT 03/04/25 Transmitted 20:53 Oxygen By Nasal RT 03/04/25 Transmitted Cannula 20:53 Stat Ekg For Chest ELIUD 03/04/25 In Process Pain 20:53 Notify Of Changes ELIUD 03/04/25 In Process From Base 20:53 Spray Mixer For ELIUD 03/04/25 In Process 24 Hours 20:53 Emergency Dysrhythmia ELIUD 03/04/25 In Process Protocol 20:53 Rhythm Strips Once ELIUD 03/04/25 In Process Every Shift 20:53 Electrocardigram EKG 03/04/25 Logged 21:47 Pantoprazole PHA 03/05/25 In Process (Protonix) 10:00 Abg W/ Co-Ox RT 03/05/25 Logged 00:42 D5w/Sod Chl 0.45% PHA 03/05/25 In Process (D5w 1/2ns) 00:45 Comprehensive LAB 03/05/25 Transmitted Metabolic Panel 03:00 Ceftriaxone Ivpb PHA 03/05/25 Transmitted Rocephin 09:00 Basic Metabolic Panel LAB 03/05/25 Transmitted 07:00 Basic Metabolic Panel LAB 03/05/25 Transmitted 11:00 Date of Service: Mar 04, 2025 Billing Provider: TANA VAN MD Common Visit Codes: 93010-[id number] INP/OBS CARE (HIGH) Secondary Visit Codes: [id number] CARE PLAN 30 MINUTES MARCUS MCGOVERN RESIDENT Mar 05, 2025 03:08
[2025-03-05 04:31] LABS: Basophils # (auto) 0 10 ^3/uL (0-0.2); Basophils % (auto) 0.2 % (0.0-2.0); Eosinophils # (auto) 0 10 ^3/uL (0-0.8); Eosinophils % (auto) 0.1 % (0.0-7.0); Hematocrit 42.3 % (36.0-46.0); Lymphocytes # (auto) 2.3 10 ^3/uL (0.4-5.4); Lymphocytes % (auto) 11.9 % (10.0-50.0); Mean Corpuscular Hemoglobin 31.7 pg (28.0-32.0); Mean Corpuscular Hgb Conc. 33.2 g/dL (32.0-36.0); Mean Corpuscular Volume 95.7 fL (80.0-100.0); Monocytes # (auto) 1.1 10 ^3/uL (0-1.3); Neutrophils # (auto) 15.5 10 ^3/uL (1.6-8.6); Neutrophils % (auto) 81.8 % (37.0-80.0); Platelet Count (auto) 347 10^3/uL (140-450); Red Blood Cells 4.41 10^6/uL (4.0-5.20); Red Cell Distribution Width 13.5 % (11.8-14.3); White Blood Cell 18.9 10^3/uL (4.4-10.8)
[2025-03-05 04:56] LABS: Alanine Aminotransferase 20 U/L (7-40); Albumin 3.9 g/dL (3.2-4.8); Anion Gap 14 (5-15); Aspartate Aminotransferase 17 U/L (<34); BUN/Creatinine Ratio 15.8 (10.0-20.0); Blood Urea Nitrogen 16 mg/dL (9-23); Potassium 4.7 mmol/L (3.5-5.1); Sodium 138 mmol/L (136-145); Total Protein 6.5 g/dL (5.7-8.2)
[2025-03-05 05:00] LABS: Alkaline Phosphatase 133 U/L (46-116); Bilirubin, Total 0.3 mg/dL (0.2-1.0); Calcium 7.8 mg/dL (8.7-10.4); Carbon Dioxide 13 mmol/L (20-31); Chloride 111 mmol/L (98-107); Glucose 118 mg/dL (74-106)
--- NOTE | 2025-03-05 07:00 | ECG ---
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
[2025-03-05] MEDS: POTASSIUM CHLORIDE 20 MEQ, LIDOCAINE 1% (LOCAL ANESTH.) 2 ML in SODIUM CHL 0.9% 100 ML IV ONE (10:00)
[2025-03-05] MEDS ORDERED: DEXTROSE (50%) 50ML SYRG IV PRN (10:00)
[2025-03-05] MEDS ORDERED: INSULIN LANTUS (GLARGINE) 1 /0.01ml (100units/ml) SC SCH (10:00)
[2025-03-05] MEDS: SODIUM CHLORIDE 0.9% 500 ML IV ONE (10:45)
[2025-03-05] MEDS: cefTRIAXone 1GM/50ML D5W 50 ML IV SCH (11:06)
[2025-03-05] MEDS: PANTOPRAZOLE 40 MG/10 ML VIAL INJ IV SCH (11:07)
[2025-03-05] MEDS: INSULIN LANTUS (GLARGINE) 1 /0.01ml (100units/ml) SC SCH (11:08)
[2025-03-05] MEDS: INSULIN LISPRO (HUMAN) 100 UNITS/ML ML SC SCH (11:30)
[2025-03-05] MEDS: ACCU-CHEK COMFORT CURVE STRIP VI SCH (11:30)
[2025-03-05] MEDS: InsuLIN REG 1unit/0.01ml Soln (100units/ml) SC SCH ×2 (11:30→23:16)
[2025-03-05 12:20] LABS: Potassium 3.7 mmol/L (3.5-5.1); Sodium 138 mmol/L (136-145)
[2025-03-05 12:21] LABS: Anion Gap 12 (5-15); Calcium 8.8 mg/dL (8.7-10.4)
[2025-03-05 12:23] LABS: Carbon Dioxide 18 mmol/L (20-31); Chloride 108 mmol/L (98-107)
[2025-03-05 12:26] LABS: BUN/Creatinine Ratio 15.2 (10.0-20.0); Blood Urea Nitrogen 15 mg/dL (9-23)
[2025-03-05 12:28] LABS: Glucose 115 mg/dL (74-106)
[2025-03-05 12:33] LABS: Magnesium 1.9 mg/dL (1.6-2.6)
[2025-03-05 12:34] LABS: Phosphorus 2.1 mg/dL (2.4-5.1)
--- NOTE | 2025-03-05 15:46 | DVHPNRES ---
Progress Note Date Seen: Mar 05, 2025 Resident Creating Document: TONY BRANCH ABDOUL Has the PT tested + for MRSA If YES, has PT been informed?: No Medical Necessity Reason Pt with a Central, PICC or Fol: No Subjective Review of Systems Patient is a 44-year-old female with a past medical history of diabetes mellitus presented to the ED with a chief complaint of nausea and generalized weakness. Patient reported that since the last 2 days she has been feeling weak associated with the excessive thirst since yesterday. Patient ran out of her long-acting insulin 2- 3 days ago. Patient denied any episode of emesis, abdominal pain. Patient denied cough, expectoration, fever, chills. Patient did report of having increased thirst and increased frequency of urination. Patient's urine was positive for amphetamines Past medical history: Diabetes mellitus 1 versus type 2 Past surgical history: None Social history: Patient lives with the [facility], smoked less than 1 pack of cigarettes per day, occasional alcohol use denies any other drug use Patient seen and examined at the bedside. The patient is feeling better since admission, but still complained of frequency. Patient reports: No new complaints, Feels better Changes from previous H/P or p: Changes Objective vital signs Vital Sign Date Time Temp Pulse Resp B/P (MAP) Pulse Ox O2 Delivery O2 Flow Rate FiO2 03/05/25 12:00 90 03/05/25 12:00 12 124/71 (88) 99 03/05/25 08:00 Room Air* 0 21 03/05/25 08:00 98.4 98.4 Total Intake and Output 03/04/25 03/04/25 03/05/25 15:00 23:00 07:00 Intake Total 1101.5 ml 950.0 ml Balance 1101.5 ml 950.0 ml medications Current Medications Medications Dose Ordered Sig/Laura Route Start Time Stop Time Status Last Admin Dose Admin Pantoprazole Sodium 40 mg DAILY IV 03/05/25 10:00 03/05/25 11:07 40 MG Ceftriaxone Sodium 50 ml @ 100 mls/hr DAILY@09 IV 03/05/25 09:00 03/05/25 11:06 100 MLS/HR Insulin Glargine 15 units BID SC 03/05/25 10:00 03/05/25 11:08 15 UNITS Insulin Human Lispro 10 units AC SC 03/05/25 11:30 03/05/25 11:30 10 UNITS Diagnostic Test (Pha) 1 strip ACHS 03/05/25 11:30 Insulin Human Regular HS SC 03/05/25 22:00 Insulin Human Regular AC SC 03/05/25 11:30 Dextrose 50 ml UD PRN IV 03/05/25 10:00 Examination General Appearance: Alert, Oriented X3, Cooperative, No acute distress HEENT: Atraumatic, PERRLA, EOMI, Mucous membrane moist/pink Respiratory: Clear to auscultation, Normal air movement Cardiovascular: Regular rate, Normal S1, Normal S2, No murmurs, no chest wall tenderness Abdominal: Normal bowel sounds, Soft, No tenderness, No hepatospenomegaly, No masses Extremities: No clubbing, No cyanosis, No edema, Normal pulses, No tenderness/swelling Skin: No rashes, No breakdown, No significant lesion Neuro: Normal gait, Normal speech, Strength at 5/5 X4 ext, Normal tone, Sensation intact, Cranial nerves 3-12 NL, Reflexes 2+ Psych/Mental Status: Mental status NL, Mood NL laboratory and microbiology Laboratory Tests 03/05/25 12:00 03/05/25 03:31 Test 03/05/25 12:00 Range/Units Serum Glucose 115 H 74-106 mg/dL Labs and/or images reviewed: Labs reviewed by me, Image(s) reviewed by me Problem List/Assessment/Plan Problem List/Assessment/Plan Uncontrolled diabetes mellitus type 1 with DKA Diabetic ketoacidosis Anion gap Metabolic acidosis with respiratory compensation Acute complicated UTI Sepsis likely due to above REX on CKD likely d/t dehydration,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 Peripheral neuropathy from uncontrolled diabetes Hyperkalemia * ABGs shows uncompensated metabolic acidosis * Chest x-ray shows hyperinflated lung Plan/recommendation * Discontinue insulin drip and D5W half-normal saline * Insulin Lantus 15 units b.i.d., lispro 10 units t.i.d., and regular according to moderate sliding scale * IV normal saline * Replete potassium * Empiric antibiotic Rocephin DIET: Diabetic diet DVT PROPHYLAXIS: Lovenox GI PROPHYLAXIS:: Protonix CODE STATUS: Goal of care discussed for more than 18 minutes, full code DISPOSITION: Telemetry Patient's status and plan discussed with the patient. Case discussed with Dr. Connell. Plan discussed with: Patient, Other (RN) My Orders My Orders Orders - TONY BRANCH RESDIENT Procedure Category Date Status Time Insulin Lantus PHA 03/05/25 In Process (Glargine) (Lantus) 10:00 *Rn [employer] REFER 03/05/25 Transmitted Referral 09:52 Consistent DIET 03/05/25 Transmitted Carb(Ccho)Diabetes Lunch Insulin Lispro PHA 03/05/25 In Process (Human) (Humalog) 11:30 Glucose Blood PHA 03/05/25 In Process (Accu-Chek Comfort 11:30 Insulin R (Human) PHA 03/05/25 In Process (Insulin R) 22:00 Insulin R (Human) PHA 03/05/25 In Process (Insulin R) 11:30 Dextrose 50% Syringe PHA 03/05/25 In Process 10:00 PTPTT LAB 03/06/25 Verified 04:00 Communication Order ORDERS 03/05/25 Transmitted 10:09 Date of Service: Mar 05, 2025 Billing Provider: FAY CONNELL MD Common Visit Codes: [id number] INP/OBS CARE(HIGH) TONY BRANCH RESDIENT Mar 05, 2025 15:46 FAY CONNELL MD Mar 08, 2025 22:16
[2025-03-05] MEDS: POTASSIUM EFFERVESENT TAB 25 MEQ PO ONE (16:24)
[2025-03-05] MEDS: MAGNESIUM SULFATE 1GM/100ML 100 ML IV ONE (16:25)
[2025-03-06] VITALS (7 sets, daily range): BP systolic 110–146; BP diastolic 71–83; PULSE 50–102; RESP 16–19; TEMP 97.5–98; O2SAT 97–100
[2025-03-06 07:40] LABS: Basophils # (auto) 0 10 ^3/uL (0-0.2); Basophils % (auto) 0.3 % (0.0-2.0); Eosinophils # (auto) 0.2 10 ^3/uL (0-0.8); Eosinophils % (auto) 2.2 % (0.0-7.0); Hematocrit 40.3 % (36.0-46.0); Hemoglobin 13.9 g/dL (12.2-16.2); Lymphocytes # (auto) 2.2 10 ^3/uL (0.4-5.4); Lymphocytes % (auto) 30.7 % (10.0-50.0); Mean Corpuscular Hgb Conc. 34.5 g/dL (32.0-36.0); Mean Corpuscular Volume 92.9 fL (80.0-100.0); Monocytes # (auto) 0.4 10 ^3/uL (0-1.3); Neutrophils # (auto) 4.5 10 ^3/uL (1.6-8.6); Neutrophils % (auto) 60.8 % (37.0-80.0); Nucleated Red Blood Cells % 0.1 %; Platelet Count (auto) 294 10^3/uL (140-450); Red Blood Cells 4.34 10^6/uL (4.0-5.20); Red Cell Distribution Width 13.6 % (11.8-14.3); White Blood Cell 7.3 10^3/uL (4.4-10.8)
[2025-03-06 08:00] LABS: Anion Gap 9 (5-15); Carbon Dioxide 23 mmol/L (20-31); Sodium 140 mmol/L (136-145)
[2025-03-06 08:01] LABS: Calcium 9.1 mg/dL (8.7-10.4)
[2025-03-06 08:06] LABS: BUN/Creatinine Ratio 16.7 (10.0-20.0); Blood Urea Nitrogen 12 mg/dL (9-23)
[2025-03-06 08:15] LABS: Chloride 108 mmol/L (98-107); Glucose 112 mg/dL (74-106); Potassium 3.2 mmol/L (3.5-5.1)
[2025-03-06 08:18] LABS: INR 0.92 (0.9-1.15); Partial Thromboplastin Time 24.5 SEC (24.5-34.5); Prothrombin Time 9.8 sec (9.3-11.8)
--- NOTE | 2025-03-06 13:31 | DVHPNRES ---
Progress Note Date Seen: Mar 06, 2025 Resident Creating Document: CASEY MCDONALD RESIDENT Has the PT tested + for MRSA If YES, has PT been informed?: No Medical Necessity Reason Pt with a Central, PICC or Fol: No Subjective Review of Systems Patient is a 44-year-old female with a past medical history of diabetes mellitus presented to the ED with a chief complaint of nausea and generalized weakness. Patient reported that since the last 2 days she has been feeling weak associated with the excessive thirst since yesterday. Patient ran out of her long-acting insulin 2- 3 days ago. Patient denied any episode of emesis, abdominal pain. Patient denied cough, expectoration, fever, chills. Patient did report of having increased thirst and increased frequency of urination. Patient's urine was positive for amphetamines Past medical history: Diabetes mellitus 1 versus type 2 Past surgical history: None Social history: Patient lives with the [facility], smoked less than 1 pack of cigarettes per day, occasional alcohol use denies any other drug use 03/06/25 At admission, patient was on insulin drip due to DKA, later was transitioned to insulin SC, today she had hypoglycemia at 7 am with normal glucose at 5 am, please put the lispro insulin between 10 min before each meal, we will continue monitor the sugars Objective vital signs Vital Sign Date Time Temp Pulse Resp B/P (MAP) Pulse Ox O2 Delivery O2 Flow Rate FiO2 03/06/25 13:24 97.6 85 16 130/74 (92) 100 97.6 03/06/25 08:00 Room Air* 0 21 Total Intake and Output 03/05/25 03/05/25 03/06/25 15:00 23:00 07:00 Intake Total 354.0 ml 800 ml 100 ml Output Total 0 ml Balance 354.0 ml 800 ml 100 ml medications Current Medications Medications Dose Ordered Sig/Laura Route Start Time Stop Time Status Last Admin Dose Admin Pantoprazole Sodium 40 mg DAILY IV 03/05/25 10:00 03/06/25 10:16 40 MG Ceftriaxone Sodium 50 ml @ 100 mls/hr DAILY@09 IV 03/05/25 09:00 03/06/25 10:15 100 MLS/HR Insulin Glargine 15 units BID SC 03/05/25 10:00 03/06/25 10:17 15 UNITS Insulin Human Lispro 10 units AC SC 03/05/25 11:30 03/06/25 06:02 10 UNITS Diagnostic Test (Pha) 1 strip ACHS 03/05/25 11:30 03/06/25 11:32 1 STRIP Insulin Human Regular HS WI 03/05/25 22:00 03/05/25 23:16 4 UNITS Insulin Human Regular AC SC 03/05/25 11:30 03/06/25 12:00 9 UNITS Dextrose 50 ml UD PRN IV 03/05/25 10:00 Examination General Appearance: Alert, Oriented X3, Cooperative, No acute distress HEENT: Atraumatic, PERRLA, EOMI, Mucous membrane moist/pink Respiratory: Clear to auscultation, Normal air movement Cardiovascular: Regular rate, Normal S1, Normal S2, No murmurs, no chest wall tenderness Abdominal: Normal bowel sounds, Soft, No tenderness, No hepatosplenomegaly, No masses Extremities: No clubbing, No cyanosis, No edema, Normal pulses, No tenderness/swelling Skin: No rashes, No breakdown, No significant lesion Neuro: Normal gait, Normal speech, Strength at 5/5 X4 ext, Normal tone, Sensation intact, Cranial nerves 3-12 NL, Reflexes 2+ Psych/Mental Status: Mental status NL, Mood NL laboratory and microbiology Laboratory Tests 03/06/25 05:45 Test 03/06/25 05:45 Range/Units Serum Glucose 112 H 74-106 mg/dL Labs and/or images reviewed: Labs reviewed by me, Image(s) reviewed by me Problem List/Assessment/Plan Problem List/Assessment/Plan Uncontrolled diabetes mellitus type 1 with DKA Diabetic ketoacidosis Anion gap Metabolic acidosis with respiratory compensation Acute complicated UTI Sepsis likely due to above REX on CKD likely d/t dehydration,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 Peripheral neuropathy from uncontrolled diabetes Hyperkalemia Polysubstance (meth and tobacco) use disorder * ABGs shows uncompensated metabolic acidosis * Chest x-ray shows hyperinflated lung * UDS positive for methamphetamine Plan/recommendation * please put the lispro insulin 10 min before each meal or when the food tray arrives * Insulin Lantus 15 units b.i.d., lispro 10 units t.i.d., and regular according to mild sliding scale * Replete potassium * Empiric antibiotic Rocephin * Counseled for 22 minutes for methamphetamine and tobacco use cessation; including 16 minutes exclusively for tobacco use cessation DIET: Diabetic diet DVT PROPHYLAXIS: Lovenox GI PROPHYLAXIS:: Protonix CODE STATUS: Goal of care discussed for 20 minutes, full code DISPOSITION: Telemetry Patient's status and plan discussed with the patient. Case discussed with Dr. Wheeler Plan discussed with: Patient, Other (RN) Addendum Addendum Addendum I was physically present for the [place] portions of the service provided to patient by THE RESIDENT. I have reviewed the documentation, discussed the case with resident and agree with the resident's documentation except as noted. Also the patient's clinical case was discussed with the patient's nurse. This medical document was created using an electronic medical record system with computerized dictation system. Although this document has been carefully reviewed, there might still be some phonetic and typographical errors. These areas are purely typographical due to imperfections of the software programs, and do not reflect any compromise in the patient's medical care. Late signature. Date of Service: Mar 06, 2025 Billing Provider: ASHLEY WHEELER MD Common Visit Codes: [id number] INP/OBS CARE(HIGH) Secondary Visit Codes: 31514-UHEYN CHNG SMOKING >10MIN (22 minutes for methamphetamine and tobacco use cessation; including 16 minutes exclusively for tobacco use cessation), 25623-NYVBLXDE CARE PLAN 30 MINUTES (20 minutes) CASEY MCDONALD Mar 06, 2025 13:31 ASHLEY WHEELER MD Mar 08, 2025 09:05
[2025-03-06] MEDS ORDERED: DEXTROSE (50%) 50ML SYRG IV PRN (15:45)
[2025-03-06] MEDS: POTASSIUM EFFERVESENT TAB 25 MEQ PO ONE (16:30)
[2025-03-06] MEDS: ACCU-CHEK COMFORT CURVE STRIP VI SCH (17:08)
[2025-03-06] MEDS: InsuLIN REG 1unit/0.01ml Soln (100units/ml) SC SCH (17:11)
[2025-03-07 05:00] VITALS: BP 133/81; PULSE 84; RESP 18; TEMP 97.2; O2SAT 98
[2025-03-07 08:00] VITALS: PULSE 72; PULSE 74; RESP 17; O2SAT 99
[2025-03-07 09:11] VITALS: BP 119/78; PULSE 74; RESP 17; TEMP 98.1; O2SAT 99
[2025-03-07] MEDS: INSULIN LANTUS (GLARGINE) 1 /0.01ml (100units/ml) SC SCH (10:00)
[2025-03-07] MEDS ORDERED: INSU100I52 IJ (12:04)
[2025-03-07] MEDS ORDERED: ISOP70MI4 EX (12:04)
[2025-03-07] MEDS ORDERED: LANC-347 XX (12:04)
[2025-03-07] MEDS ORDERED: GLUC-224 VI (12:04)
[2025-03-07] MEDS ORDERED: BLOO-169 XX (12:04)
[2025-03-07] MEDS ORDERED: ATOR-507 PO (12:04)
[2025-03-07] MEDS ORDERED: INSU100I70 SC (12:04)
--- NOTE | 2025-03-07 12:07 | DVHDSRES ---
Discharge Summary Date of Admission Resident Creating Document: CASEY MCDONALD RESIDENT Mar 04, 2025 at 20:53 Date of Discharge: Mar 07, 2025 Admitting Diagnosis Nausea and generalized weakness Labs/Diagnostic Data: Laboratory Results Test 03/07/25 10:11 03/06/25 05:45 03/05/25 12:00 03/05/25 03:31 POC Glucose 129 mg/dl (70-106) White Blood Count 7.3 10^3/uL (4.4-10.8) Red Blood Count 4.34 10^6/uL (4.0-5.20) Hemoglobin 13.9 g/dL (12.2-16.2) Hematocrit 40.3 % (36.0-46.0) Mean Corpuscular Volume 92.9 fL (80.0-100.0) Mean Corpuscular Hemoglobin 32.0 pg (28.0-32.0) Mean Corpuscular Hemoglobin Concent 34.5 g/dL (32.0-36.0) Red Cell Distribution Width 13.6 % (11.8-14.3) Platelet Count 294 10^3/uL (140-450) Mean Platelet Volume 8.4 fL (6.9-10.8) Neutrophils (%) (Auto) 60.8 % (37.0-80.0) Lymphocytes (%) (Auto) 30.7 % (10.0-50.0) Monocytes (%) (Auto) 6.0 % (0.0-12.0) Eosinophils (%) (Auto) 2.2 % (0.0-7.0) Basophils (%) (Auto) 0.3 % (0.0-2.0) Neutrophils # (Auto) 4.5 10 ^3/uL (1.6-8.6) Lymphocytes # (Auto) 2.2 10 ^3/uL (0.4-5.4) Monocytes # (Auto) 0.4 10 ^3/uL (0-1.3) Eosinophils # (Auto) 0.2 10 ^3/uL (0-0.8) Basophils # (Auto) 0 10 ^3/uL (0-0.2) Nucleated Red Blood Cells 0.1 % Prothrombin Time 9.8 sec (9.3-11.8) Prothrombin Time INR 0.92 (0.9-1.15) Activated Partial Thromboplast Time 24.5 SEC (24.5-34.5) Sodium Level 140 mmol/L (136-145) Potassium Level 3.2 mmol/L (3.5-5.1) Chloride Level 108 mmol/L (98-107) Carbon Dioxide Level 23 mmol/L (20-31) Anion Gap 9 (5-15) Blood Urea Nitrogen 12 mg/dL (9-23) Creatinine 0.72 mg/dL (0.550-1.02) Glomerular Filtration Rate Calc 107 mL/min (>90) BUN/Creatinine Ratio 16.7 (10.0-20.0) Serum Glucose 112 mg/dL (74-106) Calcium Level 9.1 mg/dL (8.7-10.4) Phosphorus Level 2.1 mg/dL (2.4-5.1) Magnesium Level 1.9 mg/dL (1.6-2.6) Hemoglobin A1c 11.4 % A1C (<5.7) Total Bilirubin 0.3 mg/dL (0.2-1.0) Aspartate Amino Transferase (AST) 17 U/L (<34) Alanine Aminotransferase (ALT) 20 U/L (7-40) Alkaline Phosphatase 133 U/L (46-116) Total Protein 6.5 g/dL (5.7-8.2) Albumin 3.9 g/dL (3.2-4.8) Test 03/05/25 00:59 03/04/25 18:17 03/04/25 17:44 Blood Gas Specimen Type Arterial Blood Gas Sample Site Left brachial Blood Gas Patient Temperature 37.0 Arterial Blood Date Drawn [id number] Arterial Blood pH 7.193 (7.350-7.450) Arterial Blood Partial Pressure CO2 23.4 mmHg (32.0-45.0) Arterial Blood Partial Pressure O2 95.8 mmHg (83.0-108.0) Arterial Blood HCO3 8.8 mmol/L (21.0-28.0) Arterial Blood Oxygen Saturation 97.3 % (94.0-98.0) Arterial Blood Base Excess -17.4 mmol/L (-2.0-3.0) Arterial Blood Oxyhemoglobin 95.6 % (94.0-98.0) Arterial Blood Carboxyhemoglobin 1.3 % (0.5-1.5) Arterial Blood Methemoglobin 0.4 % (0.0-1.5) Dwayne Test N/a Blood Gas Total Hemoglobin 14.80 g/dL (12.0-16.0) Blood Gas Modality Room air FiO2 % 21.0 Blood Gas Critical Value Read Back Yes Blood Gas Notified Whom marcus Mcgovern md Blood Gas Notified Time [id number] Blood Gas Notified By Differential Total Cells Counted 100.0 (100) Neutrophils % (Manual) 91 (37.0-80.0) Band Neutrophils % (Manual) 2 Lymphocytes % (Manual) 4 (10.0-50.0) Monocytes % (Manual) 3 (0-12) Eosinophils % (Manual) 0 (0-7) Basophils % (Manual) 0 (0.0-2.0) Metamyelocytes % (manual) 0 Myelocytes % (Manual) 0 Promyelocytes % (Manual) 0 Blast Cells % (Manual) 0 Reactive Lymphocytes 0 Platelet Estimate Adequate Anisocytosis (manual) Slight Plasma/Serum Blood Alcohol < 3.0 mg/dL (<10) Urine Color Light-yellow (Yellow) Urine Clarity Clear (Clear) Urine pH 5.0 (5.0-9.0) Urine Specific [place] 1.020 (1.001-1.035) Urine Protein Trace (Negative) Urine Ketones 4+ (Negative) Urine Blood 2+ /uL (Negative) Urine Nitrite Negative (Negative) Urine Bilirubin Negative (Negative) Urine Urobilinogen Normal mg/dL (Negative) Urine Leukocyte Esterase 2+ /uL (Negative) Urine RBC 17 /hpf (0 - 4) Urine Microscopic WBC 12 /HPF (0-5) Urine Squamous Epithelial Cells Few /hpf (<5) Urine Bacteria None seen /hpf (None Seen) Urine Glucose 4+ mg/dL (Normal) Urine Test Negative (Negative) Urine Opiates Screen Neg (NEGATIVE) Urine Fentanyl Screen Neg (NEGATIVE) Urine Barbiturates Screen Neg (NEGATIVE) Urine Phencyclidine Screen Neg (NEGATIVE) Urine Amphetamines Screen Pos (NEGATIVE) Urine Benzodiazepines Screen Neg (NEGATIVE) Urine Cocaine Screen Neg (NEGATIVE) Urine Cannabinoids Screen Neg (NEGATIVE) Other Laboratory Tests 03/06/25 05:45 Brief Hx & Hospital Course: HISTORY OF PRESENTING ILLNESS: Patient is a 44-year-old female with a past medical history of diabetes mellitus presented to the ED with a chief complaint of nausea and generalized weakness. Patient reported that since the last 2 days she has been feeling weak associated with the excessive thirst since yesterday. Patient ran out of her long-acting insulin 2- 3 days ago. Patient denied any episode of emesis, abdominal pain. Patient denied cough, expectoration, fever, chills. Patient did report of having increased thirst and increased frequency of urination. Patient's urine was positive for amphetamines Past medical history: Diabetes mellitus 1 versus type 2 Past surgical history: None Social history: Patient lives with the [facility], smoked less than 1 pack of cigarettes per day, occasional alcohol use denies any other drug use HOSPITAL COURSE: Patient was admitted at the line of uncontrolled diabetes mellitus with DKA. The patient was started on IV fluid normal saline, insulin drip, and supplemented potassium and the patient was kept NPO. ABGs showed decompensated metabolic acidosis, chest x-ray showed hyperinflated lung. Gradually, the patient's nausea, vomiting and abdominal improved. Anion gap closed with insulin drip, bicarbonate level gradually got normalized, the patient symptoms improved. Subsequently, patient was started on Lantus 15 units b.i.d., lispro 10 units t.i.d. and regular according to moderate sliding scale and insulin drip was stopped 2 hours later. Patient was also given empiric antibiotic of Rocephin for UTI. Patient was gradually started on clear liquid diet, which tolerated and subsequently the diet was advanced. Patient also reports of unprotected sexual contact with a partner which is suspected of having STD. Labs were sent for the acute hepatitis panel, HIV, gonorrhea/chlamydia, and syphilis, which we will follow up on discharge Clinic. On 03/07/2025, the patient was feeling better since admission. Patients hyperglycemia and DKA had improved, patient had no symptoms 1 could tolerate regular diet. Discharge plan discussed with the patient and the patient discharged home. PHYSICAL EXAM ON THE DAY OF DISCHARGE: GENERAL APPEARANCE: ALERT, ORIENTED X3, COOPERATIVE, NO ACUTE DISTRESS HEENT: ATRAUMATIC, PERRLA, EOMI, MUCOUS MEMBRANE MOIST/PINK RESPIRATORY: CLEAR TO AUSCULTATION, NORMAL AIR MOVEMENT CARDIOVASCULAR: REGULAR RATE, NORMAL S1, NORMAL S2, NO MURMURS, NO CHEST WALL TENDERNESS ABDOMINAL: NORMAL BOWEL SOUNDS, SOFT, NO TENDERNESS, NO HEPATOSPLENOMEGALY, NO MASSES EXTREMITIES: NO CLUBBING, NO CYANOSIS, NO EDEMA, NORMAL PULSES, NO TENDERNESS/SWELLING SKIN: NO RASHES, NO BREAKDOWN, NO SIGNIFICANT LESION NEURO: NORMAL GAIT, NORMAL SPEECH, STRENGTH AT 5/5 X4 EXT, NORMAL TONE, SENSATION INTACT, CRANIAL NERVES 3-12 NL, REFLEXES 2+ PSYCH/MENTAL STATUS: MENTAL STATUS NL, MOOD NL DISCHARGE PLAN: Follow up with the PCP within 1 week of the discharge. Follow up with the discharge Clinic within 1 week of the discharge, and we will review the labs reports of HIV, acute hepatitis panel, gonorrhea/chlamydia, and syphilis at office. Insulin Lantus 12 units b.i.d. 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 Wheeler Condition at Discharge: Stable Final Diagnosis/Problems List . Discharge Disposition: Home Discharge Instruct/Medications Diet: Consistent carbohydrate Activity: No Restrictions, As Tolerated Follow Up/Referral: Follow up with the PCP within 1 week of the discharge. Follow up with the discharge Clinic within 1 week of the discharge. Medications: Insulin Lantus 12 units 2 times daily Insulin Lispro 10 units 3 times daily Atorvastatin 40 mg daily Continue home meds Discharge Statement: "Patient was advised to return to the ER or call 911 if any headaches, dizziness, shortness of breath, chest pain, abdominal pain, bleeding, fevers, or worsening of medical condition. Patient was counseled about treatment plan, medications, possible side effects, patientverbalized understanding. All questions were answered to the best of my ability. This discharge took greater then 30 minutes in planning, reviewing documentation, counseling the patient, and discussing with other team members." ASSESSMENT ASSESSMENT Assessment DKA Addendum Addendum Addendum I was physically present for the ol[place]a portions of the service provided to patient by THE RESIDENT. I have reviewed the documentation, discussed the case with resident and agree with the resident's documentation except as noted. Also the patient's clinical case was discussed with the patient's nurse. This medical document was created using an electronic medical record system with computerized dictation system. Although this document has been carefully reviewed, there might still be some phonetic and typographical errors. These areas are purely typographical due to imperfections of the software programs, and do not reflect any compromise in the patient's medical care. Late signature. Date of Service: Mar 07, 2025 Billing Provider: ASHLEY WHEELER MD Common Visit Codes: 97860-FIU/OBS DISCH DAY >30min TONY BRANCH RESDIENT Mar 07, 2025 12:07 ASHLEY WHEELER MD Mar 08, 2025 09:08
[2025-03-07 13:30] VITALS: BP 119/72; PULSE 86; RESP 16; TEMP 98.4; O2SAT 100
[2025-03-07 16:51] VITALS: BP 121/77; PULSE 88; RESP 17; TEMP 97.9; O2SAT 98
[2025-03-08 10:10] LABS: Hepatitis B Surface Antigen Negative (Negative)
[2025-03-08 10:32] LABS: Hepatitis A Ab IgM Negative; Hepatitis B Core IgM Negative (Negative); Hepatitis C Antibody Negative (Negative)
[2025-03-10 04:06] LABS: Chlamydia Trachomatis, NAA Negative (Negative); Neisseria gonorrhoeae, NAA Negative (Negative)
[2025-03-10] MEDS ORDERED: INSU100I45 IJ (18:26)
[2025-03-10] MEDS ORDERED: LANC-347 XX (18:35)
[2025-03-10] MEDS ORDERED: ATOR40TA52 PO (18:35)
[2025-03-10] MEDS ORDERED: INSU100I54 SC (18:35)
[2025-03-10] MEDS ORDERED: ISOP70MI2 EX (18:35)
[2025-03-10] MEDS ORDERED: INSU1INJ19 SC (18:35)
== END 2025-03-07 19:12 | disposition home or self-care (01) | DRG 720 ==
LOC: ER 17:29 → EDBD 17:29 → EDUNIT# 17:29 → OVERFLOW 20:53 → TELE-CENTR 03-05 21:37
PROVIDERS: ADMIT Student in an Organized Health Care Education/Training Program; ATTEND Emergency Medicine
DX: A41.9 Sepsis, unspecified organism (principal); N17.0 Acute kidney failure with tubular necrosis; E10.10 Type 1 diabetes mellitus with ketoacidosis without coma; E10.21 Type 1 diabetes mellitus with diabetic nephropathy; E10.22 Type 1 diabetes mellitus with diabetic chronic kidney disease; E10.42 Type 1 diabetes mellitus with diabetic polyneuropathy; N18.9 Chronic kidney disease, unspecified; E87.5 Hyperkalemia; F15.10 Other stimulant abuse, uncomplicated; F17.210 Nicotine dependence, cigarettes, uncomplicated; N39.0 Urinary tract infection, site not specified; E86.0 Dehydration
CPT/HCPCS: 36415; 36600; 71045; 80048; 80053; 80074; 80307; 80320; 81001; 81025; 82805; 82962; 83036; 83735; 84100; 84132; 85007; 85025; 85027; 85610; 85730; 86703; 87040; 87086; 93005; 96361; 96374; 96375; 99291; G0378; J1815; J1956; J2003; J2405; J2470